=== PATIENT | female | born 1985 | race Caucasian/White ===

== ENCOUNTER 2018-10-02 18:50 | Emergency (ER) | payer BC ==
--- OUTSIDE RECORDS SUMMARY | 2018-10-02 18:52 | XMS REPORT | Clinical Summary ---
:1985 Author Organization [facility] Address [address] [place] [address] Care Team Providers Name Role Phone Madhavi Primary Care Provider Allergies No Known Allergies Medications Medication Sig Dispensed Refills Start Date End Date Status pantoprazole Inject 40 mg 1 each 0 05/12/2016 Active (PROTONIX) injection intravenously daily. 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 Anemia 05/10/2016 Suicide attempt 05/10/2016 Major depress dis, severe 05/10/2016 Poisoning by selective serotonin reuptake inhibitor, intentional 05/09/2016 self-harm, initial encounter Poisoning by selective serotonin reuptake inhibitor, intentional self-harm Acute respiratory failure 05/08/2016 QT prolongation 05/08/2016 Acute metabolic encephalopathy 05/08/2016 Social History Tobacco Use Types Packs/Day Years Used Date Never Assessed Sex Assigned at Date Recorded Not on file Job Start Date Occupation Industry Not on file Not on file Not on file Travel History Travel Start Travel End No recent travel history available. Last Filed Vital Signs Not on file Plan of Treatment Not on file Results Not on fileafter 10/01/2017 Insurance Payer Benefit Plan / Group Subscriber ID Type Phone Address OTHER-COMMERCIAL GENERIC [employer]ERCIAL xxxxxxxxxx
[2018-10-02 19:55] LABS: Urine RBC <5 /HPF (NONE SEEN)
[2018-10-02 19:56] LABS: Urine Bacteria 20-50 /HPF (<20); Urine Culture Reflex Order REFLEXED; Urine Mucus 1+ /HPF (NONE SEEN)
[2018-10-02 20:01] LABS: Absolute Lymphocytes (CBC) 1.7 K/uL (0.7-4.9); Basophils % 0.9 % (0-1.3); Eosinophils % 4.9 % (0-4.4); Hematocrit 41.8 % (36.0-45.0); Lymphocytes % 30.1 % (15.3-44.8); MPV 9.5 fL (7.6-11.3); Monocytes % 4.8 % (3.3-12.3)
[2018-10-02 20:08] LABS: Urine Blood TRACE (NEG); Urine Glucose NEGATIVE (NEG); Urine Protein 1+ (NEG)
[2018-10-02 20:11] LABS: ALT/SGPT 22 U/L (12-78); AST/SGOT 14 U/L (15-37); Albumin 3.9 g/dL (3.4-5.0); Alkaline Phosphatase 69 U/L (45-117); BUN Blood Urea Nitrogen 10 mg/dL (7-18); Bicarbonate 26 mmol/L (21-32); Bilirubin Direct < 0.1 mg/dL (0-0.2); Bilirubin Total 0.4 mg/dL (0.2-1.0); Glucose Level 130 mg/dL (74-106); Lipase 80 U/L (73-393); Potassium 3.5 mmol/L (3.5-5.1); Protein, Total 7.4 g/dL (6.4-8.2); Sodium Level 139 mmol/L (136-145)
--- NOTE | 2018-10-02 21:57 | ER ---
Nurse's Notes [facility] Name: Megan Dolan Age: 33 yrs Sex: Female : 1985 Arrival Date: 10/02/2018 Time: 18:53 Bed 14 Private MD: Diagnosis: Cholelithiasis Presentation: 10/02 18:57 Presenting complaint: Patient states: I think I have a UTI, having lower back pain and la1 pressure when I try to urinate, I am itching all over. Last time I was I had the same itching and it was because my liver was shutting down. I am also in case that effects my medications. Transition of care: patient was not received from another setting of care. Onset of symptoms was October 02, 2018. Risk Assessment: Do you want to hurt yourself or someone else? Patient reports no desire to harm self or others. Initial Sepsis Screen: Does the patient meet any 2 criteria? No. Patient's initial sepsis screen is negative. Does the patient have a suspected source of infection? No. Patient's initial sepsis screen is negative. Care prior to arrival: None. 18:57 Method Of Arrival: Ambulatory la1 18:57 Acuity: KATIE 3 la1 18:57 Acuity: KATIE 3 la1 Historical: - Allergies: 18:58 No Known Allergies; la1 - PMHx: 18:58 Depression; la1 - Immunization history:: Adult Immunizations up to date. - Social history:: Smoking status: Patient/guardian denies using tobacco. - Ebola Screening: : No symptoms or risks identified at this time. Screenin:23 Abuse screen: Denies threats or abuse. Denies injuries from another. Nutritional ls4 screening: No deficits noted. Tuberculosis screening: No symptoms or risk factors identified. Fall Risk None identified. Assessment: 19:36 General: Appears in no apparent distress. uncomfortable, Behavior is calm, appropriate ls4 for age. 19:36 Pain: Complains of pain in left low back and right low back and right mid back Pain ls4 radiates to anterior aspect of right lateral abdomen. Neuro: No deficits noted. Cardiovascular: No deficits noted. Respiratory: No deficits noted. GI: Bowel sounds present X 4 quads. Abd is soft and non tender X 4 quads. : Reports inability to void, urinary frequency. Derm: Reports itching, since last night. 20:27 Reassessment: Patient and/or family updated on plan of care and expected duration. Pain ls4 level reassessed. Patient is alert, oriented x 3, equal unlabored respirations, skin warm/dry/pink. 21:29 Reassessment: Patient and/or family updated on plan of care and expected duration. Pain ls4 level reassessed. Patient is alert, oriented x 3, equal unlabored respirations, skin warm/dry/pink. Vital Signs: 18:58 BP 136 / 80; Pulse 83; Resp 16; Temp 97.5; Pulse Ox 98% on R/A; Weight 72.57 kg; Height la1 5 ft. 2 in. (157.48 cm); 21:16 BP 108 / 67; Pulse 82; Resp 16; Pulse Ox 99% on R/A; ls4 22:22 BP 122 / 67; Pulse 84; Resp 16; Pulse Ox 99% on R/A; Pain 3/10; ls4 18:58 Body Mass Index 29.26 (72.57 kg, 157.48 cm) la1 ED Course: 18:53 Patient arrived in ED. rg4 18:58 Triage completed. la1 18:58 Arm band placed on right wrist. la1 19:13 Ke Blackmon PA is PHCP. cp 19:13 Ciro Daniels MD is Attending Physician. cp 19:20 Mariajose Rodrigez, MARGY is Primary Nurse. ls4 19:51 Basic Metabolic Panel Sent. ls4 19:52 CBC with Diff Sent. ls4 19:52 No provider procedures requiring assistance completed. Initial lab(s) drawn, by ga, ls4 sent to lab. Inserted saline lock: 20 gauge in right antecubital area, using aseptic technique. Blood collected. 20:23 Patient has correct armband on for positive identification. Bed in low position. Call ls4 light in reach. Side rails up X 1. Pulse ox on. NIBP on. Warm blanket given. Pillow given. Verbal reassurance given. 20:56 CT Stone Protocol: right flank pain In Process Unspecified. EDMS 21:55 Darius Ball MD is Referral Physician. cp 22:21 IV discontinued, intact, bleeding controlled, No redness/swelling at site. Pressure ls4 dressing applied. Administered Medications: No medications were administered Outcome: 21:56 Discharge ordered by . rodri 22:20 Discharged to home ambulatory. ls4 22:20 Condition: stable 22:20 Discharge instructions given to patient, Instructed on discharge instructions, follow up and referral plans. medication usage, Demonstrated understanding of instructions, follow-up care, medications, Prescriptions given X 2. 22:24 Patient left the ED. ls4 Signatures: Dispatcher [employer] EDMS Casper Suarez RN RN la1 Ke Blacmkon PA PA cp Garcia, Rubi rg4 Mariajose Rodrigez RN RN ls4 Corrections: (The following items were deleted from the chart) 18:59 18:57 Presenting complaint: Patient states: I think I have a UTI, having lower back la1 pain and pressure when I try to urinate, I am itching all over. Last time I was I had the same itching and it was because my liver was shutting down la1
--- NOTE | 2018-10-02 21:57 | EDPHYS ---
Physician Documentation [facility] Name: Megan Dolan Age: 33 yrs Sex: Female : 1985 Arrival Date: 10/02/2018 Time: 18:53 Bed 14 Private MD: ED Physician Ciro Daniels HPI: 10/02 19:30 This 33 yrs old Female presents to ER via Ambulatory with complaints of cp Abdominal Pain, Back Pain, Urinary Problem. 19:30 The patient complains of pain in the right mid back. cp 19:30 The pain does not radiate. Onset: The symptoms/episode began/occurred yesterday. cp Associated signs and symptoms: Pertinent positives: pressure when urinating, Pertinent negatives: diarrhea, fever, vomiting. Historical: - Allergies: 18:58 No Known Allergies; la1 - PMHx: 18:58 Depression; la1 - Immunization history:: Adult Immunizations up to date. - Social history:: Smoking status: Patient/guardian denies using tobacco. - Ebola Screening: : No symptoms or risks identified at this time. ROS: 19:35 Constitutional: Negative for body aches, chills, fever, poor PO intake. cp 19:35 Eyes: Negative for injury, pain, redness, and discharge. cp 19:35 ENT: Negative for drainage from ear(s), ear pain, sore throat, difficulty swallowing, difficulty handling secretions. 19:35 Cardiovascular: Negative for chest pain, edema, palpitations. 19:35 Respiratory: Negative for cough, shortness of breath, wheezing. 19:35 Back: Positive for flank pain, on the right. 19:35 : Positive for pressure when urinating, Negative for burning with urination, vaginal bleeding, vaginal discharge. 19:35 Skin: Negative for rash. 19:35 Neuro: Negative for headache, weakness. 19:35 All other systems are negative. Exam: 19:42 Constitutional: The patient appears in no acute distress, alert, awake, non-toxic, well cp developed, well nourished. 19:42 Head/Face: Normocephalic, atraumatic. cp 19:42 Eyes: Periorbital structures: appear normal, Conjunctiva: normal, no exudate, no injection, Sclera: no appreciated abnormality, Lids and lashes: appear normal, bilaterally. 19:42 ENT: External ear(s): are unremarkable, Nose: is normal, Mouth: Lips: moist, Oral mucosa: pink and intact, moist, Posterior pharynx: is normal, airway is patent, no erythema, no exudate. 19:42 Chest/axilla: Inspection: normal, Palpation: is normal, no crepitus, no tenderness. 19:42 Cardiovascular: Rate: normal, Rhythm: regular. 19:42 Respiratory: the patient does not display signs of respiratory distress, Respirations: normal, no use of accessory muscles, no retractions, no splinting, no tachypnea, labored breathing, is not present, Breath sounds: are clear throughout, no decreased breath sounds, no stridor, no wheezing. 19:42 Abdomen/GI: Inspection: abdomen appears normal, Bowel sounds: active, all quadrants, Palpation: soft, in all quadrants, mild abdominal tenderness, in the left upper quadrant and left lower quadrant, voluntary guarding, is not appreciated, involuntary guarding, is not appreciated. 19:42 Back: pain, that is moderate, of the right mid back, ROM is normal. Vital Signs: 18:58 BP 136 / 80; Pulse 83; Resp 16; Temp 97.5; Pulse Ox 98% on R/A; Weight 72.57 kg; Height la1 5 ft. 2 in. (157.48 cm); 21:16 BP 108 / 67; Pulse 82; Resp 16; Pulse Ox 99% on R/A; ls4 22:22 BP 122 / 67; Pulse 84; Resp 16; Pulse Ox 99% on R/A; Pain 3/10; ls4 18:58 Body Mass Index 29.26 (72.57 kg, 157.48 cm) la1 MDM: 19:22 Patient medically screened. cp 20:00 Differential diagnosis: nephrolithiasis, pyelonephritis, UTI, pancreatitis, cp cholelithiasis, cholecystitis. 21:55 Data reviewed: vital signs, nurses notes, lab test result(s), radiologic studies, CT cp scan. 21:55 Counseling: I had a detailed discussion with the patient and/or guardian regarding: the cp historical points, exam findings, and any diagnostic results supporting the discharge/admit diagnosis, lab results, radiology results, the need for outpatient follow up, a general surgeon, to return to the emergency department if symptoms worsen or persist or if there are any questions or concerns that arise at home. ED course: VSS. Pain and nausea improved. No vomiting observed in ED. Will discharge to home for continued monitoring. 10/02 19:22 Order name: Urine Microscopic Only; Complete Time: 19:58 cp 10/02 19:58 Interpretation: Normal except: UBACT 20-50; SQEPI 10-20. cp 10/02 19:25 Order name: Basic Metabolic Panel 10/02 19:25 Order name: CBC with Diff 10/02 19:25 Order name: Creatinine for Radiology; Complete Time: 20:24 cp 10/02 19:25 Order name: Hepatic Function; Complete Time: 20:24 cp 10/02 19:25 Order name: Lipase; Complete Time: 20:24 cp 10/02 19:22 Order name: Urine Dipstick-Ancillary (obtain specimen); Complete Time: 19:34 cp 10/02 19:26 Order name: Basic Metabolic Panel; Complete Time: 20:24 EDMS 10/02 19:26 Order name: CBC with Automated Diff; Complete Time: 20:24 EDMS 10/02 19:38 Order name: Urine Dipstick--Ancillary (enter results); Complete Time: 20:24 ag4 10/02 19:38 Order name: Urine --Ancillary (enter results); Complete Time: 20:24 ag4 10/02 19:57 Order name: Urine Culture EDOR 10/02 20:24 Order name: CT Stone Protocol: right flank pain 10/02 19:22 Order name: Urine Test (obtain specimen); Complete Time: 19:34 cp 10/02 19:25 Order name: IV Saline Lock; Complete Time: 19:51 cp 10/02 19:25 Order name: Labs collected and sent; Complete Time: 19:51 cp Administered Medications: No medications were administered Disposition: 10/03 03:11 Co-signature as Attending Physician, Ciro Daniels MD. pkl Disposition: 10/02/18 21:56 Discharged to Home. Impression: Cholelithiasis. - Condition is Stable. - Discharge Instructions: Biliary Colic, Adult, Cholelithiasis. - Prescriptions for Ibuprofen 800 mg Oral Tablet - take 1 tablet by ORAL route every 8 hours As needed take with food; 30 tablet. Zofran 4 mg Oral Tablet - take 1 tablet by ORAL route every 12 hours As needed; 20 tablet. - Medication Reconciliation Form, Thank You Letter, Antibiotic Education, Prescription Opioid Use form. - Follow up: Darius Ball MD; When: 2 - 3 days; Reason: cholelithiasis. - Problem is new. - Symptoms have improved. Signatures: Dispatcher [employer] EDMS Ciro Daniels MD MD pkl Attema, Lee RN RN la1 Ke Blackmon PA PA cp Stewart, Lisa RN RN ls4 Corrections: (The following items were deleted from the chart) 10/02 22:24 21:56 10/02/2018 21:56 Discharged to Home. Impression: Cholelithiasis. Condition is ls4 Stable. Forms are Medication Reconciliation Form, Thank You Letter, Antibiotic Education, Prescription Opioid Use. Follow up: Darius Ball; When: 2 - 3 days; Reason: cholelithiasis. Problem is new. Symptoms have improved. cp
--- NOTE | 2018-10-04 12:24 | RAD REPORT ---
EXAM DESCRIPTION: CT - Stone Protocol - 10/02/2018 8:56 pm CLINICAL HISTORY: 33 years Female RIGHT FLANK PAIN TECHNIQUE: Contiguous axial images obtained through the abdomen and pelvis without IV contrast. Co cayla and sagittal reformatted images provided. This CT exam was performed according to our departmental dose-optimization program, which includes on e or more of the following dose reduction techniques: automated exposure control, adjustment of the m A and/or kV according to patient size, and/or use of iterative reconstruction technique. COMPARISON: No prior exams provided for comparison. FINDINGS: There are no renal, ureteral, or bladder calculi. There is no hydronephrosis or perinephri c stranding on either side. Normal collapse vs. mild inflammation of the ascending colon and hepatic flexure. No other bowel wall thickening. No bowel obstruction, pneumatosis, free intraperitoneal air, abscess, or ascites. Normal appendix. The liver is mildly enlarged without focal lesion on this noncontrast study. Gallstones without evidence of acute cholecystitis or biliary dilatation. The unenhanced pancreas, spleen, adrenal glands, kidneys, uterus, adnexa, urinary bladder, and osseou s structures are normal. IMPRESSION: Normal collapse vs. mild inflammation of the ascending colon and hepatic flexure. No bowel obstruction or perforation. Normal appendix. No urolithiasis or urinary obstruction. Mild hepatomegaly. Cholelithiasis without cholecystitis. Electronically signed by: Beata Hart MD 10/02/2018 9:09 PM CDT Due to temporary technical issues with the PACS/Fluency reporting system, reports are being signed by the in house radiologist as a courtesy to ensure prompt reporting. The interpreting radiologist is f ully responsible for the content of the report.
== END 2018-10-02 22:24 | disposition home or self-care (01) ==
LOC: ER 18:50
DX: K80.20 Calculus of gallbladder without cholecystitis without obstruction (principal); F32.9 Major depressive disorder, single episode, unspecified
CPT/HCPCS: 36415; 74176; 76377; 80048; 80076; 81003; 81015; 81025; 83690; 85025; 87086; 87088; 99284